=== PATIENT | male | born 1980 | race Caucasian/White ===

== ENCOUNTER → 2016-10-18 | Outpatient (CLI) | payer OTHER ==
[2016-07-08 12:14] VITALS: BP 126/82
[~2016-10-18] MED LIST: ERYT1OIN6 OD
--- NOTE | 2016-10-18 14:37 | RAD ---
Lumbar spine, 7 views, 10/18/2016: History: Chronic low back pain Routine views of the lumbar spine were obtained as well as lateral standing views in flexion and extension. The lumbar vertebral heights are well-maintained. There is mild disc space narrowing at L5-S1. There are mild scattered marginal spurs. There are mild sclerotic changes involving the facet joints in the lower lumbar spine. There is no evidence of spondylolysis. There is a slight reverse spondylolisthesis at L2-3 best seen on the standing view in extension. The paraspinous soft tissues are unremarkable. IMPRESSION: 1. Mild scattered degenerative change. 2. Slight reverse spondylolisthesis at L2-3.
== END | disposition home or self-care (01) ==
LOC: RAD 13:44
PROVIDERS: ATTEND Family Medicine
DX: M47.896 Other spondylosis, lumbar region (principal); M43.16 Spondylolisthesis, lumbar region
CPT/HCPCS: 72114